=== PATIENT | female | born 1945 | race Caucasian/White ===

== ENCOUNTER 2018-11-26 01:55 | Emergency (ER) | payer MEDICARE, OTHER ==
[2018-11-26] MEDS ORDERED: ONDANSETRON HCL 4 MG/2 ML VIAL ONE (02:16)
[2018-11-26] MEDS ORDERED: LOPERAMIDE HCL 2 MG CAP PO ONE (02:34)
[2018-11-26] MEDS ORDERED: CEFTRIAXONE SODIUM 1 GM ONE (02:34)
[2018-11-26 02:40] LABS: BASOPHILS % (AUTO) 0.6 % (0.0-5.0); EOSINOPHILS % (AUTO) 0.5 % (0.0-8.0); HEMATOCRIT 43.1 % (36-48); LYMPHOCYTES % (AUTO) 14.6 % (21.0-51.0); MEAN CORPUSCULAR HEMOGLOBIN 30.8 pg (27.0-33.0); MEAN CORPUSCULAR HGB CONC 34.2 g/dL (32.0-36.0); MEAN CORPUSCULAR VOLUME 90.3 fL (79-99); NEUTROPHILS % (AUTO) 80.3 % (40.0-77.0); PLATELET COUNT (AUTO) 252 K/uL (130-400); RED BLOOD CELL COUNT(AUTO) 4.78 MIL/uL (4.00-5.50); WHITE BLOOD COUNT (AUTO) 11.1 K/uL (4.8-10.8)
[2018-11-26 02:43] LABS: APPEARANCE,URINE CLEAR (CLEAR); BILIRUBIN,URINE NEGATIVE (NEGATIVE); COLOR,URINE YELLOW (YELLOW); GLUCOSE, URINE (UA) NEGATIVE (NEGATIVE); KETONES,URINE 15 mg/dL (NEGATIVE); LEUKOCYTE ESTERASE ,URINE SMALL (NEGATIVE); NITRATE,URINE NEGATIVE (NEGATIVE); OCCULT BLOOD,URINE TRACE-INTACT (NEGATIVE); PROTEIN,URINE 30 mg/dL (NEGATIVE)
[2018-11-26 02:45] LABS: PH,URINE 5.5 (5.0-8.0)
[2018-11-26 02:48] LABS: BACTERIA,URINE None Seen /HPF (None Seen); CALCIUM OXALATE CRYSTALS,UR Many /LPF (None Seen); MUCUS,URINE Rare LPF (None Seen); RBC,URINE 0-1 /HPF (0-1); SQUAMOUS EPITHELIAL CELL,UR Few /HPF (0-2); WBC,URINE 0-1 /HPF (0-1)
[2018-11-26 02:49] LABS: CREATININE 1.2 mg/dL (0.5-1.5); POTASSIUM 3.7 mmol/L (3.5-5.1)
[2018-11-26 02:54] LABS: BILIRUBIN,TOTAL 0.6 mg/dL (0.2-1.0); TOTAL PROTEIN, SERUM 8.3 g/dL (6.0-8.3)
== END 2018-11-26 05:20 | disposition home or self-care (01) ==
LOC: EDH 01:55
DX: K52.9 Noninfective gastroenteritis and colitis, unspecified (principal); E86.0 Dehydration; E78.5 Hyperlipidemia, unspecified; Z88.2 Allergy status to sulfonamides; Z90.710 Acquired absence of both cervix and uterus; Z90.49 Acquired absence of other specified parts of digestive tract
CPT/HCPCS: 36415; 80053; 81001; 82550; 83690; 84484; 85025; 93005; 96361; 96374; 96375; 99285; J0696; J2405

== ENCOUNTER → 2024-05-18 | Outpatient (CLI) | payer OTHER | END | disposition home or self-care (01) | LOC: RAH 07:35 | PROVIDERS: ATTEND Family Medicine | DX: Z13.6 Encounter for screening for cardiovascular disorders (principal); R93.1 Abnormal findings on diagnostic imaging of heart and coronary circulation | CPT/HCPCS: 75571 ==

== ENCOUNTER 2025-05-28 10:52 | Emergency (ER) | payer MEDICARE, OTHER ==
[~2025-05-28] VITALS: Ht 175.3 cm; Wt 83.9 kg
[2025-05-28 10:54] VITALS: TEMP 97.8
--- NOTE | 2025-05-28 10:57 | ERN ---
ED Note History of Present Illness Stated Complaint: FALL W/R SHOULDER INJURY Chief Complaint: Mechanical Fall Time Seen by MD: 10:54 Dictation: PATIENT IS A 79-YEAR-OLD FEMALE COMING IN VIA EMS WITH A COMPLAINTS OF A TRIP FALL AND LANDED ON HER RIGHT SHOULDER. SHE HAS NOT BEEN ABLE TO RANGE HER RIGHT SHOULDER SINCE THE FALL. AND THE POSITION OF COMFORT IS A FLEXED ACROSS HER CHEST AND ABDOMEN. DISTAL NEUROVASCULAR CMS INTACT. NO BLOOD THINNERS NO HEAD INJURY NO SPINE PAIN. NO OTHER COMPLAINTS OF VOICE ACCEPT RIGHT SHOULDER Allergies: Coded Allergies: Sulfa (Sulfonamide Antibiotics) (Unverified Allergy, Unknown, 05/28/25) Past Medical History History: Not Applicable RN Note Reviewed/Agreed w/PFSH: Yes Review of System Dictation CONSTITUTIONAL: NEGATIVE EXCEPT FOR HPI HEAD/FACE: NEGATIVE EXCEPT FOR HPI EENT: NEGATIVE EXCEPT FOR HPI RESPIRATORY: NEGATIVE EXCEPT FOR HPI GASTROINTESTINAL/ABDOMINAL: NEGATIVE EXCEPT FOR HPI GENITOURINARY: NEGATIVE EXCEPT FOR HPI MUSCULOSKELETAL: NEGATIVE EXCEPT FOR HPI RIGHT SHOULDER PAIN WITH DECREASED RANGE OF MOTION RIGHT UPPER EXTREMITY INTEGUMENTARY: NEGATIVE EXCEPT FOR HPI NEUROLOGICAL/PSYCH: NEGATIVE EXCEPT FOR HPI HEMATOLOGIC/LYMPHATIC: NEGATIVE EXCEPT FOR HPI ALL SYSTEMS NEGATIVE, EXCEPT NOTED ABOVE. 13 POINT REVIEW OF SYSTEMS ASSESSED AND ALL NEGATIVE EXCEPT FOR ABOVE. Initial Vital Sign VS Vital Signs Date Time Temp Pulse Resp B/P (MAP) Pulse Ox O2 Delivery O2 Flow Rate FiO2 05/28/25 10:54 97.9 89 17 183/81 98 Room Air 0 05/28/25 11:35 21 Physical Exam Dictation VITAL SIGNS REVIEWED GENERAL APPEARANCE: ALERT, ORIENTED X 3, MILD ACUTE DISTRESS, WELL DEVELOPED, NOURISHED. HEAD AND FACE: NON-TRAUMATIC. EYES: PERRL, PINK CONJUNCTIVAS, EYELID NO TRAUMA, ANTERIOR CHAMBER WITH ARCUS SENILIS. EARS: PINNAS INTACT AND NO SIGNS OF TRAUMA OR ERYTHEMA EAR CANALS CLEAR AND NO DISCHARGE TM NO ERYTHEMA NOSE: NO DISCHARGE, NO BLEEDING. OROPHARYNX: MOUTH NORMAL, TONGUE PINK, PHARYNX CLEAR,NO ERYTHEMA, TONSILS NO EXUDATES, NO ABSCESSES NOTED, MUCOUS MEMBRANE MOIST NECK: SUPPLE, NON-TENDER, NO THYROMEGALY, NO MASSES, NO JVD, NO BRUITS BREAST:DEFERRED CHEST:NO TENDERNESS, NO CREPITUS, NO PARADOXICAL MOVEMENT, NO RETRACTIONS LUNGS:CLEAR, WELL-VENTILATED, SYMMETRIC, NO RALES, NO WHEEZING, NO RHONCHI, NO STRIDOR, GOOD BREATH SOUNDS BILATERALLY HEART: REGULAR RATE, REGULAR RHYTHM, NO MURMUR, NO GALLOPS VASCULAR: NO PERIPHERAL EDEMA, ABDOMEN: SOFT, POSITIVE BOWEL SOUNDS, NONDISTENDED, NO GUARDING, NONTENDER, NO REBOUND, NO MASSES NO HEPATOMEGALY, NO SPLENOMEGALY, NO REY'S SIGN, NO HERNIAS. RECTAL: DEFERRED GENITAL: DEFERRED NEUROLOGICAL: NORMAL SPEECH, MOTOR FUNCTION INTACT, SENSORY FUNCTION INTACT MUSCULOSKELETAL: NECK NONTENDER, FULL RANGE OF MOTION, BACK NONTENDER, FULL RANGE OF MOTION, EXTREMITIES: RIGHT ANTERIOR SHOULDER FULLNESS WITH DECREASED RANGE OF MOTION RIGHT UPPER EXTREMITY. UPPER EXTREMITY FLEXED TO CHEST INTERNALLY IN POSITION OF COMFORT SKIN: COLOR PINK, DRY, NO TURGOR, NO RASH, NO LACERATIONS, NO ABRASIONS, NO CONTUSIONS. LYMPHATIC: DEFERRED Results (Laboratory/Radiology) Laboratory/Radiology 1125/RIGHT SHOULDER X-RAY DEMONSTRATES ANTERIOR DISLOCATION 1142/postreduction film demonstrates humeral head in appropriate position had it would reduction Labs Reviewed?: Yes ED Course ED Course Orders Procedure Category Date Status Time Shoulder Comp 2+Vws Rt RAD 05/28/25 Taken 10:54 Ketorolac PHA 05/28/25 Complete Tromethamine 30mg/Ml 11:00 Morphine 4mg Syg PHA 05/28/25 Complete (Morphine 4mg Syg) 11:30 Ondansetron 4mg Inj PHA 05/28/25 Complete (Zofran 4mg Inj) 11:30 Shoulder Ltd 1vw Rt RAD 05/28/25 Taken 11:42 Shoulder Immobilizer [facility] 05/28/25 In Process 11:42 Current Medications Medications (Trade) Dose Ordered Sig/Guillermo Route PRN Reason Start Time Stop Time Status Last Admin Dose Admin Ketorolac Tromethamine (toRADol) 30 mg ONCE ONCE IVP 05/28/25 11:00 05/28/25 11:13 DC 05/28/25 11:21 Morphine Sulfate (morPHINE 4MG SYG) 4 mg ONCE ONCE IVP 05/28/25 11:30 05/28/25 11:31 DC 05/28/25 11:39 Ondansetron HCl (zoFRAN 4MG INJ) 4 mg ONCE ONCE IVP 05/28/25 11:30 05/28/25 11:31 DC 05/28/25 11:38 Vital Signs Date Time Temp Pulse Resp B/P (MAP) Pulse Ox O2 Delivery O2 Flow Rate FiO2 05/28/25 11:35 71 21 171/84 99 Room Air* 0 21 05/28/25 10:54 97.9 89 17 183/81 98 Room Air 0 1155/patient and made aware that reduction was successful Shoulder immobilizer in place with distal neurovascular CMS intact to right hand. Patient will be referred to Venus Loera for follow up. Medical Decision Making MDM Medical decision-making based on x-ray of right shoulder X-ray demonstrated anterior dislocation Reduction was successful and shoulder immobilized Distal neurovascular CMS intact to right hand Patient aware that they need to follow up with Dr. Venus Loera Immobilizer in place until cleared by [facility] Loera Procedure Procedure Dictation: 1140/PROCEDURE EXPLAINED TO PATIENT AND HER THEY AGREED TO PROCEED. O2 AT 2 L PER NASAL CANNULA IN PLACE SOLE BUFFER ON PATIENT GIVEN MORPHINE 4 MG IV PUSH WITH ZOFRAN 4 MG. ONCE PATIENT WAS REPORTING NO PAIN MILD TRACTION TO RIGHT UPPER EXTREMITY WITH A EXTERNAL ROTATION UNTIL REDUCTION WAS FELT. DISTAL NEUROVASCULAR CMS INTACT POST REDUCTION SHOULDER IMMOBILIZER WE WILL BE PLACED REPEAT X-RAY TO VERIFY REDUCTION. DX & DISP Disposition: Discharge Departure Impression: Primary Impression: Dislocation of shoulder, anterior, right, closed Additional Impression: Fall Condition: Stable Scripts Acetaminophen with Codeine (Acetaminophen-Cod #3 Tablet) 300 Mg-30 Mg Tablet 1 TAB PO Q4H PRN for Moderate to severe pain, #12 TAB 0 Refills Prov: CHANTAL KATZ eWs OIL CHANGE TECHNICIAN 05/28/25 Additional Instructions: Follow-up with primary care provider in 1 to 2 days. Take medications as directed here in the emergency room. Okay to continue home medications unless otherwise discussed during your visit in the emergency room today. Return to your nearest emergency room if symptoms worsen or if there is no improvement. Call 911 if you need immediate assistance. Take Tylenol or Motrin [id number] as needed and if no contraindications are present. Increase oral hydration. A wound culture or urine culture was ordered here in the emergency room department please follow-up with primary care provider and advise them to get repeat ports from our facility. If you had any Ramakrishna wrap/splints that were applied here, please do not remove them until you see your primary care or specialty. Cool compresses to pain three to 4 times a day. Take Tylenol with codeine for severe pain. Suggest Tylenol Arthritis 650 mg [id number] every 8 hours as needed for mild pain. Shoulder immobilizer and no weight-bearing right arm until cleared by Dr. Venus Loera, call her today for an appointment Referrals: BEN ALSTON DO (PCP) VENUS LOERA MD Time of Disposition: 11:58 I have reviewed the case, and I agree with, Diagnosis and Plan CHANTAL KATZ OIL CHANGE TECHNICIAN May 28, 2025 10:57
[2025-05-28 11:35] VITALS: BP 171/84; PULSE 71; RESP 21; O2SAT 99
--- NOTE | 2025-05-28 11:46 | NUR ---
1140 CHANTAL RANGE SCIENTIST IN ROOM FOR REDUCTION 1141 MEDICATION GIVEN FOR REDUCTION (SEE EMAR) [address], RAD DEPT CALLED FOR XRAY TO CONFIRM PLACEMENT. PT VITALS WNL , PT STABLE.
[2025-05-28] MEDS ORDERED: ACET-2079 PO (11:59)
--- NOTE | 2025-05-28 12:22 | NUR ---
PT STABLE, ARM IMMOBILIZER PLACED TO RT ARM, PT AND GIVEN INSTRUCTION FOR HOME, IV REMOVED CATHETER INTACT. PT PLACED IN W/C DRIVEN HOME BY SPOUSE.
--- NOTE | 2025-05-28 12:39 | HMCIMG ---
EXAM: CR right Shoulder, 1 View. CLINICAL HISTORY: STATUS POST REDUCTION FILM VERIFY PLACEMENT COMPARISON: Radiograph from earlier today FINDINGS: The glenohumeral joint is now anatomically aligned. The acromioclavicular joint remains anatomically aligned. There is no acute fracture appreciated. There is no acute abnormality within the visualized chest. IMPRESSION: 1. Glenohumeral joint anatomically aligned post-reduction. 2. No acute fracture or dislocation. /[place]
--- NOTE | 2025-05-28 13:04 | HMCIMG ---
EXAM: SHOULDER RADIOGRAPHS, RIGHT, 2 VIEWS Technique: Anteroposterior and scapular Y views of the right shoulder. Clinical Information: Fall with right anterior shoulder pain and decreased range of motion. Findings: Bones and joints: The humeral head projects anteroinferior to the glenoid on the scapular Y view, consistent with anterior glenohumeral dislocation; no definite acute fracture is identified on the provided views. Mild degenerative changes of the acromioclavicular joint with joint space narrowing and small marginal osteophytes. Soft tissues: No abnormal soft-tissue calcification or radiopaque foreign body identified. Impression: * Anterior glenohumeral dislocation of the right shoulder without definite associated fracture on the provided views. Prompt orthopedic reduction is recommended with post-reduction radiographs to confirm alignment; consider cross-sectional imaging if instability or fracture is suspected clinically. * Mild acromioclavicular joint osteoarthrosis. /[place]
== END 2025-05-28 12:36 | disposition home or self-care (01) ==
LOC: EDH 10:52
DX: S43.014A Anterior dislocation of right humerus, initial encounter (principal); Z88.2 Allergy status to sulfonamides; W01.0XXA Fall on same level from slipping, tripping and stumbling without subsequent striking against object, initial encounter; Y93.89 Activity, other specified; Y92.89 Other specified places as the place of occurrence of the external cause; Y99.8 Other external cause status
CPT/HCPCS: 99284; 23650; 96374; 96375; 73030; 73020; J1885; J2405; J2270

== ENCOUNTER 2025-06-11 13:12 | Emergency (ER) | payer MEDICARE ==
[~2025-06-11] VITALS: Ht 175.3 cm; Wt 83.9 kg
[~2025-06-11 13:12] MED LIST: ACET-2079 PO
[2025-06-11 14:15] VITALS: BP 159/68; TEMP 98.7
--- NOTE | 2025-06-11 14:22 | HMCIMG ---
EXAM: CR right Shoulder, 2 View. CLINICAL HISTORY: pain/fall COMPARISON: May 28 2025 FINDINGS: BONES: No acute fracture or aggressive appearing osseous lesion. JOINTS: No dislocation. The joint spaces are normal. SOFT TISSUES: The soft tissues are unremarkable. IMPRESSION: No acute abnormality evident on examination of the right shoulder. No acute fracture or dislocation. /[place]
--- NOTE | 2025-06-11 14:39 | ERN ---
ED Note History of Present Illness Stated Complaint: SHOULDER Chief Complaint: Shoulder Injury/Pain Time Seen by MD: 13:18 Time Seen by Midlevel: 13:20 Dictation: 79-year-old female coming in with a right shoulder pain. Patient had a fall and was seen here where she dislocated her arm and was reduced. Patient follow up with her PCP today for increased shoulder pain, they repeated the x-ray and was told that there was a hairline fracture. Patient reported to the ER for pain management. Allergies: Coded Allergies: Sulfa (Sulfonamide Antibiotics) (Unverified Allergy, Unknown, 05/28/25) Home Meds Active Scripts Acetaminophen with Codeine (Acetaminophen-Cod #3 Tablet) 300 Mg-30 Mg Tablet, 1 TAB PO Q4H PRN for Moderate to severe pain, #12 TAB 0 Refills Prov:GIANNACHANTAL 05/28/25 Past Medical History Past Medical History: Diabetes-Type II, High Cholesterol, Hypertension Surgical History: Appendectomy, Hysterectomy, Tonsillectomy History: Not Applicable Review of System Dictation Constitutional: Negative for fever,chills, and weight loss Eyes: Negative for injury, pain,redness, and discharge ENT: Negative for injury,pain or swelling Cardiovascular: Negative for chest pain, palpitations, and edema Respiratory: Negative for shortness of breath, cough, and wheezing, Abdomen/GI: Negative for abdominal pain, nausea, vomiting, diarrhea, and constipation Back: Negative for injury and pain : Negative for injury, bleeding and discharge MS/Extremity: Negative for injury and deformity, right shoulder pain Skin: Negative for rash, and discoloration Neuro: Negative for headache, weakness, numbness, tingling, and seizure Psych: Negative for suicide ideation, homicidal ideation, and hallucinations Review of Systems: was completed Initial Vital Sign VS Vital Signs Date Time Temp Pulse Resp B/P (MAP) Pulse Ox O2 Delivery O2 Flow Rate FiO2 06/11/25 13:13 97.9 75 18 153/62 99 Room Air 0 06/11/25 14:15 21 Physical Exam Dictation General: awake, alert, NAD Head/Face: Normocephalic, atraumatic Eyes: PERRL, EOMI, vision at baseline ENT: oral cavity clear, TMs clear, no signs of infection Neck: Trachea midline, supple, no nuchal rigidity Cardiovascular: RRR, normal S1/S2, No MRGs, no JVD Respiratory: CTAB, no respiratory distress, No rales or wheezes Abdomen: Soft, non-tender, non-distended, normal bowel sounds, no guarding or rebound. Skin: Warm, dry, normal turgor, no rash MS/Extremity: Pulses equal, no cyanosis, neurovascular intact, FROM, right shoulder pain, shoulder immobilizer noted Neuro: COAx4, GCS 15, strength 5/5, CN 2-12 intact, normal cerebellar exam, normal gait, Psych: Normal behavior, mood, and affect normal Results (Laboratory/Radiology) Labs Reviewed?: Yes X-RAY Comment: [place] [id number] [id number] IMAGING REPORT Signed PATIENT: YAZAN VILLEGAS MR#: [id number] : 1945 SEX: F AGE: 79 LOCATION: [facility] ORDER 26 STATUS: REG ER REPORT#: [id number] SERVICE 132 REASON: pain/fall ORDERING PHYSICIAN: FLAKO CALDWELL CNP PROCEDURE: SHOL 2V RT - SHOULDER COMP 2+VWS RT EXAM: CR right Shoulder, 2 View. CLINICAL HISTORY: pain/fall COMPARISON: May 28 2025 FINDINGS: BONES: No acute fracture or aggressive appearing osseous lesion. JOINTS: No dislocation. The joint spaces are normal. SOFT TISSUES: The soft tissues are unremarkable. IMPRESSION: No acute abnormality evident on examination of the right shoulder. No acute fracture or dislocation. /[place] DICTATED BY: CLAY RAND MD DATE: 06/11/251520 ELECTRONICALLY SIGNED BY: CLAY RAND MD DATE: 06/11/251520 ED Course ED Course Orders Procedure Category Date Status Time Shoulder Comp 2+Vws Rt RAD 06/11/25 Resulted 13:26 Hydrocodone/Apap PHA 06/11/25 Complete 10/325 Tab ([place] 10) 13:30 Current Medications Medications (Trade) Dose Ordered Sig/Guillermo Route PRN Reason Start Time Stop Time Status Last Admin Dose Admin Acetaminophen/ Hydrocodone Bitart (NORco 10) 1 tab ONCE ONCE PO 06/11/25 13:30 06/11/25 13:32 DC 06/11/25 14:13 Vital Signs Date Time Temp Pulse Resp B/P (MAP) Pulse Ox O2 Delivery O2 Flow Rate FiO2 06/11/25 14:15 98.8 69 18 159/68 99 Room Air* 0 21 06/11/25 13:13 97.9 75 18 153/62 99 Room Air 0 Medical Decision Making MDM MDM: 79-year-old female coming in with a right shoulder pain. Patient had a fall and was seen here where she dislocated her arm and was reduced. Patient follow up with her PCP today for increased shoulder pain, they repeated the x- ray and was told that there was a hairline fracture. Patient reported to the ER for pain management. X-ray shows no acute finding. Discussed findings with the patient. Educated family member that he needs to follow up outpatient with the Orthopedics and PCP for pain control. Patient states she already has a prescription by her PCP with Tylenol 3. Differential diagnosis: Hairline fracture, dislocation, Rationale: Tests considered and ordered secondary to shared decision making include: Previous outside records reviewed: Old ER visits. Risk of complication and/or morbidity or mortality of patient management: None Medications-Per medication reconciliation Need for hospitalization: Patient does not meet criteria for hospitalization. Need for emergency major/minor surgery: No There are no social concerns with this patient. Prescription drug management Prescriptions will include symptomatic care Patient's prior external medical records from other ER visits were reviewed by me as indicated. Prior testing and results from previous visits were reviewed. Prior tests were taken into account with medical decision making and resource utilization, independent historian/historians were used to obtain complete medical history. I independently interpreted the test that were performed, results were reviewed by me and considered findings on radiology if ordered. Medical management and examination interpretation discussions were had by me with other qualified healthcare professionals as indicated for the patient's care. DX & DISP Disposition: Discharge Departure Impression: Primary Impression: Shoulder pain, right Condition: Stable Additional Instructions: Follow up with the orthopedic surgeon. Return to the hospital as needed. Referrals: BEN ALSTON DO (PCP) JB GARCIA MD Time of Disposition: 14:38 I have reviewed the case, and I agree with, Diagnosis and Plan FLAKO CALDWELL CNP Jun 11, 2025 14:39
[2025-06-11 15:26] VITALS: PULSE 66; RESP 17; O2SAT 97
== END 2025-06-11 15:26 | disposition home or self-care (01) ==
LOC: EDH 13:12
DX: M25.511 Pain in right shoulder (principal); E11.9 Type 2 diabetes mellitus without complications; E78.00 Pure hypercholesterolemia, unspecified; I10 Essential (primary) hypertension; Z88.2 Allergy status to sulfonamides; Z90.49 Acquired absence of other specified parts of digestive tract; Z90.710 Acquired absence of both cervix and uterus
CPT/HCPCS: 73030; 99283